=== PATIENT | male | born 2000 | race Caucasian/White ===

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

== ENCOUNTER 2019-05-17 18:58 | Emergency (ER) | payer MEDICAID ==
[~2019-05-17] VITALS: Ht 182.9 cm; Wt 76.0 kg
[2019-05-17 19:01] VITALS: BP 130/76
== END 2019-05-17 20:30 | disposition home or self-care (01) ==
LOC: ED 20:17
DX: F41.1 Generalized anxiety disorder (principal); F12.10 Cannabis abuse, uncomplicated; F20.9 Schizophrenia, unspecified
CPT/HCPCS: 93005; 99283

== ENCOUNTER 2020-03-11 00:27 | Emergency (ER) | payer MEDICAID ==
[~2020-03-11] VITALS: Ht 188 cm; Wt 75.0 kg
[2020-03-11] MEDS ORDERED: HALOPERIDOL 5 MG TABLET ONE (00:39)
[2020-03-11] MEDS ORDERED: HALOPERIDOL 5 MG TABLET PO ONE (01:00)
[2020-03-11] MEDS ORDERED: ZIPRASIDONE 20 MG INJ IM ONE ×2 (01:45→02:00)
[2020-03-11 01:59] LABS: BASOPHILS % (AUTO) 1 % (0-1); EOSINOPHILS % (AUTO) 0 % (1-7); LYMPHOCYTES % (AUTO) 22 % (22-44); MEAN CORPUSCULAR HEMOGLOBIN 31.5 pg (27.5-34.5); MEAN PLATELET VOLUME 7.5 fL (7.4-10.4); MONOCYTES % (AUTO) 9 % (2-9); NEUTROPHILS % (AUTO) 68 % (42-75); PLATELET COUNT 285 x10^3/uL (130-400); RED BLOOD COUNT 4.59 x10^6/uL (4.38-5.82); RED CELL DISTRIBUTION WIDTH 13.4 % (9.4-14.8)
[2020-03-11 02:03] LABS: MD NO
[2020-03-11 02:10] LABS: ALBUMIN 4.3 g/dL (3.4-5.0); ANION GAP 8 mmol/L (5-15); CALCIUM 9.3 mg/dL (8.5-10.1); CHLORIDE 106 mmol/L (98-107); CREATININE 0.87 mg/dL (0.7-1.3); SALICYLATE LEVEL < 1.7 mg/dL (2.8-20.0)
--- NOTE | 2020-03-11 02:40 | NUR ---
REPORT FROM SARAH, PT MOVED INTO SITTER/PSYCH APPROP ROOM. ALL BELONGINGS REMOVED AND LABELED PLACED IN STORAGE AREA. PT WITH RAPID, PRESSURED SPEACH, FLIGHT OF IDEAS, HYPER SEXUAL AND INAPPROPRIATE, TOUCHING HIS GENITALIA. SECURITY UP TO DATE. WILL CONTINUE TO MONITOR POST GEODON INJECTION.
--- NOTE | 2020-03-11 03:13 | NUR ---
SLEEPING, RR EQUAL AND UNLABORED. SITTER IN LINE OF SITE. WILL CONTINUE TO MONITOR.
--- NOTE | 2020-03-11 03:46 | NUR ---
SLEEPING, RR EQUAL AND UNLABORED. SITTER IN LINE OF SITE. WILL CONTINUE TO MONITOR.
--- NOTE | 2020-03-11 05:07 | NUR ---
PT REMAINS SLEEPING, RR EQUAL AND UNLABORED. SITTER IN LINE OF SITE. WILL CONTINUE TO MONITOR.
--- NOTE | 2020-03-11 06:10 | NUR ---
SLEEPING, RR EQUAL AND UNLABORED. WILL CONTINUE TO MONITOR. SITTER IN LINE OF SITE.
--- NOTE | 2020-03-11 07:03 | NUR ---
REPORT RECEIVED FROM KING MABRY.
--- NOTE | 2020-03-11 07:12 | NUR ---
DIET TRAY/HOSPITAL BED ORDERED AT THIS TIME.
--- NOTE | 2020-03-11 07:13 | NUR ---
URINAL AT BEDSIDE. PT STATED"I CAN'T PEE NOW" PT AWARE OF URINE SAMPLE.
--- NOTE | 2020-03-11 08:29 | NUR ---
hospital bed and diet tray provided at this time.
[2020-03-11 09:10] VITALS: BP 112/75
--- NOTE | 2020-03-11 09:14 | NUR ---
pt provided urine sample. urine collected and ua sent.
[2020-03-11 09:26] LABS: MICROSCOPIC AUTO
[2020-03-11 09:36] LABS: AMPHETAMINE SCREEN, URINE Negative (Negative); BARBITURATE SCREEN, URINE Negative (Negative); BENZODIAZEPINE SCREEN, URINE Negative (Negative); CANNABINOID SCREEN, URINE Negative (Negative); COCAINE SCREEN, URINE Negative (Negative); OPIATE SCREEN, URINE Negative (Negative)
[2020-03-11 09:37] LABS: METHADONE SCREEN, URINE Negative (Negative)
--- NOTE | 2020-03-11 09:54 | NUR ---
report given to rn at 3E. RN stated"i need to talk to psychiatrist and let you know."
--- NOTE | 2020-03-11 10:08 | NUR ---
pt used hospital phone. sitter monitoring from [facility] for safety. room remains secure.
--- NOTE | 2020-03-11 11:03 | NUR ---
diet tray ordered at this time.
--- NOTE | 2020-03-11 12:18 | NUR ---
diet tray provided at this time.
--- NOTE | 2020-03-11 12:31 | NUR ---
REPORT GIVEN TO DARRON MABRY. ALL QUESTIONS ANSWERED.
[2020-03-11] MEDS ORDERED: KETOROLAC 30 MG/1 ML ONE (23:52)
== END 2020-03-11 14:31 | disposition other institution (70) ==
LOC: ED 07:18
DX: F20.0 Paranoid schizophrenia (principal); R45.851 Suicidal ideations
CPT/HCPCS: 36415; 80048; 80307; 81001; 82040; 85025; 87086; 96372; 99284; J3486

== ENCOUNTER 2020-03-11 10:47 | Inpatient (IN) | payer MEDICAID ==
[~2020-03-11] VITALS: Ht 188 cm; Wt 72.7 kg
[2020-03-11] MEDS ORDERED: ONDANSETRON ODT 4 MG PO PRN (11:30)
[2020-03-11] MEDS ORDERED: BISACODYL 10 MG SUPP PR PRN (11:30)
[2020-03-11] MEDS ORDERED: ZIPRASIDONE 20MG CAPSULE PO PRN (11:30)
[2020-03-11] MEDS ORDERED: POLYETHYLENE GLYCOL 17 GM PACKET PO PRN (11:30)
[2020-03-11] MEDS ORDERED: ACETAMINOPHEN 325 MG TABLET PO PRN (11:30)
[2020-03-11] MEDS ORDERED: DOCUSATE 100 MG CAPSULE PO PRN (11:30)
[2020-03-11 13:15] VITALS: BP 145/77
[2020-03-11 19:08] VITALS: BP 112/62
[2020-03-11] MEDS ORDERED: OLANZAPINE 10 MG INJ IM ONE ×2 (21:45→22:00)
[2020-03-11] MEDS ORDERED: LORazepam 2 MG/ML, 1ML ONE (21:45)
[2020-03-11] MEDS ORDERED: LORazepam 2 MG/ML, 1ML IM ONE (22:00)
[2020-03-12 07:33] VITALS: BP 105/61
[2020-03-12] MEDS: BENZTROPINE 1 MG TABLET PO SCH ×2 (12:41→20:14)
[2020-03-12] MEDS: RISPERIDONE 2 MG TABLET PO SCH ×2 (12:41→20:14)
[2020-03-12 18:33] VITALS: BP 101/53
[2020-03-13] MEDS: RISPERIDONE 2 MG TABLET PO SCH ×2 (08:43→20:29)
[2020-03-13] MEDS: BENZTROPINE 1 MG TABLET PO SCH ×2 (08:43→20:29)
[2020-03-13] MEDS ORDERED: PALIPERIDONE PALMITATE 156 MG/ML IM ONE (16:00)
[2020-03-13 19:39] VITALS: BP_SYST 0
[2020-03-14] MEDS: BENZTROPINE 1 MG TABLET PO SCH ×2 (08:25→20:40)
[2020-03-14] MEDS: RISPERIDONE 2 MG TABLET PO SCH ×2 (08:25→20:40)
[2020-03-14] MEDS ORDERED: PALIPERIDONE PALMITATE 156 MG/ML IM SCH (16:00)
[2020-03-15] MEDS: RISPERIDONE 2 MG TABLET PO SCH (08:44)
[2020-03-15] MEDS: BENZTROPINE 1 MG TABLET PO SCH (08:44)
[2020-03-15] MEDS ORDERED: PALI156D IM (13:53)
[2020-03-15] MEDS ORDERED: BENZ1TAB61 PO (13:53)
== END 2020-03-15 15:07 | disposition home or self-care (01) | DRG 885 ==
LOC: 3E 13:01
PROVIDERS: ADMIT Psychiatry & Neurology Psychosomatic Medicine; ATTEND Psychiatry & Neurology Psychosomatic Medicine
DX: F25.0 Schizoaffective disorder, bipolar type (principal); I10 Essential (primary) hypertension; R82.81 Pyuria
CPT/HCPCS: 71045; 93005; J2060; J2426